=== PATIENT | female | born 1990 | race Caucasian/White ===

== ENCOUNTER 2016-12-27 23:12 | Emergency (ER) | payer MEDICAID ==
[~2016-12-27] VITALS: Ht 162.6 cm; Wt 72.7 kg
[~2016-12-27 23:12] MED LIST: AMOXICILLIN 8751 TAB PO
[2016-12-27 23:16] VITALS: TEMP 98.2
[2016-12-27 23:58] LABS: PH 6 (5-8); SQUAMOUS EPITHELIAL 0-2 /hpf; URINE APPEARANCE Clear; URINE BACTERIA Rare /hpf; URINE BILIRUBIN Negative (NEGATIVE); URINE BLOOD 2+ (NEGATIVE); URINE COLOR Straw; URINE GLUCOSE Negative (NEGATIVE); URINE KETONE Negative (NEGATIVE); URINE UROBILINOGEN Negative (NEGATIVE)
[2016-12-27 23:58] LABS: BASO % 0.4 % (0.0-2.0); EOS # 0.1 (0.0-0.7); EOS % 1.3 % (0-4.0); GRAN # 6.5 (1.4-6.5); GRAN % 66.3 % (42.2-75.2); LYMPH # 2.4 (1.2-3.4); MEAN CELL VOLUME 86 fl (80.0-100.0); MEAN CORPUSCULAR HGB CONC 34 g/dl (33.0-37.0); MEAN PLATELET VOLUME 9.7 fl (7.4-10.4); MONO # 0.8 (0.1-0.6); MONO % 7.7 % (1.7-9.3); PLATELET COUNT 320 K/mm3 (130-400); RED BLOOD COUNT 4.06 M/mm3 (4.10-5.30); REDCELL DISTRIBUTION WIDTH-CV 11.9 % (11.5-14.5); WHITE BLOOD COUNT 9.8 K/mm3 (4.8-10.8)
[2016-12-27 23:59] LABS: HEMATOCRIT 34.7 % (37.0-47.0); HEMOGLOBIN 11.8 g/dl (12.5-16.0); MEAN CORPUSCULAR HEMOGLOBIN 29 pg (27.0-31.0)
[2016-12-28 01:47] LABS: CHLAMYDIA/TRACH by PCR Female NOT DETECTED; NEISSERIA GON by PCR Female NOT DETECTED
[2016-12-28 03:45] VITALS: BP 118/72; PULSE 86
== END 2016-12-28 03:46 | disposition home or self-care (01) ==
LOC: COL.ER 23:12
PROVIDERS: Physician Assistant
DX: O20.0 Threatened abortion (principal); Z3A.01 Less than 8 weeks gestation of pregnancy

== ENCOUNTER 2017-07-30 14:01 | Outpatient (CLI) | payer MEDICAID ==
[~2017-07-30] VITALS: Ht 162.6 cm; Wt 89.1 kg
[2017-07-30 14:12] VITALS: BP 118/83; PULSE 89; TEMP 98.4
[2017-07-30] MEDS ORDERED: PRENATAL (14:21)
[2017-07-30 14:40] VITALS: BP 118/83; PULSE 89; TEMP 98.4
[2017-07-30 15:20] VITALS: BP 118/68; PULSE 93
[2017-07-30 15:35] VITALS: BP 121/73; PULSE 78
== END 2017-07-30 15:45 | disposition home or self-care (01) ==
LOC: LDRO 14:01
DX: O46.93 Antepartum hemorrhage, unspecified, third trimester (principal); Z3A.37 37 weeks gestation of pregnancy

== ENCOUNTER 2017-08-01 02:04 | Inpatient (IN) | payer MEDICAID ==
[2017-08-01] VITALS (14 sets, daily range): BP systolic 103–140; BP diastolic 61–79; PULSE 65–115; TEMP 97.4–98.1
[~2017-08-01] VITALS: Ht 162.6 cm; Wt 89.1 kg
[~2017-08-01 02:04] MED LIST changes: +PRENATAL
[2017-08-01 03:04] LABS: BASO # 0.1 (0.0-0.2); BASO % 0.3 % (0.0-2.0); EOS % 0.2 % (0-4.0); GRAN # 12.6 (1.4-6.5); GRAN % 77.9 % (42.2-75.2); HEMATOCRIT 38.2 % (37.0-47.0); HEMOGLOBIN 13.2 g/dl (12.5-16.0); LYMPH # 2.3 (1.2-3.4); LYMPH % 14.3 % (20.0-51.0); MEAN CELL VOLUME 86 fl (80.0-100.0); MEAN CORPUSCULAR HEMOGLOBIN 30 pg (27.0-31.0); MEAN CORPUSCULAR HGB CONC 35 g/dl (33.0-37.0); MEAN PLATELET VOLUME 9.6 fl (7.4-10.4); MONO # 1.1 (0.1-0.6); MONO % 6.7 % (1.7-9.3); PLATELET COUNT 250 K/mm3 (130-400); RED BLOOD COUNT 4.46 M/mm3 (4.10-5.30); REDCELL DISTRIBUTION WIDTH-CV 13.1 % (11.5-14.5)
[2017-08-02 03:00] VITALS: BP 118/76; PULSE 82; TEMP 9830
[2017-08-02 07:35] VITALS: BP 123/69; PULSE 85; TEMP 97.7
[2017-08-02] MEDS ORDERED: MOTRIN 800800 MG/TAB PO (15:44)
[2017-08-02] MEDS ORDERED: PERCOCET 325 MG1 TA2 PO (15:45)
[2017-08-02 17:20] VITALS: BP 122/83; PULSE 91; TEMP 98.4
[2017-08-02 20:30] VITALS: BP 128/77; PULSE 94; TEMP 98.1
[2017-08-03 07:00] VITALS: BP 111/79; PULSE 83; TEMP 98
== END 2017-08-03 10:35 | disposition home or self-care (01) | DRG 775 ==
LOC: LDRO 02:04 → OB 02:15 → LDR 02:15 → OB 06:35
PROVIDERS: Obstetrics & Gynecology
PROC: 10E0XZZ Delivery of Products of Conception, External Approach (ICD-10-PCS; principal; 2017-08-01)
DX: O99.824 Streptococcus B carrier state complicating childbirth (principal); Z3A.37 37 weeks gestation of pregnancy; Z37.0 Single live birth
CPT/HCPCS: J2540; J2590; J7120

== ENCOUNTER 2019-09-11 17:52 | Emergency (ER) | payer SELFPAY ==
[~2019-09-11] VITALS: Ht 162.6 cm; Wt 81.8 kg
[~2019-09-11 17:52] MED LIST changes: +MOTRIN 800800 MG/TAB PO; +PERCOCET 325 MG1 TA2 PO
[2019-09-11 19:01] LABS: COLLECTION METHOD CLEAN CATCH
[2019-09-11 19:03] LABS: BASO # 0.1 (0.0-0.2); BASO % 0.4 % (0.0-2.0); EOS # 0.1 (0.0-0.7); EOS % 0.4 % (0-4.0); GRAN # 8.3 (1.4-6.5); HEMOGLOBIN 12.1 g/dl (12.5-16.0); LYMPH # 2.6 (1.2-3.4); LYMPH % 21.7 % (20.0-51.0); MEAN CELL VOLUME 86 fl (80.0-100.0); MEAN CORPUSCULAR HEMOGLOBIN 29 pg (27.0-31.0); MEAN CORPUSCULAR HGB CONC 33 g/dl (33.0-37.0); MEAN PLATELET VOLUME 9.8 fl (7.4-10.4); MONO # 0.7 (0.1-0.6); MONO % 6.2 % (1.7-9.3); PLATELET COUNT 334 K/mm3 (130-400); REDCELL DISTRIBUTION WIDTH-CV 11.9 % (11.5-14.5)
[2019-09-11 19:14] LABS: PH 7 (5-8); SQUAMOUS EPITHELIAL 0-2 /hpf; URINE APPEARANCE Clear; URINE BACTERIA None Seen /hpf; URINE BILIRUBIN Negative (NEGATIVE); URINE BLOOD Negative (NEGATIVE); URINE COLOR Straw; URINE GLUCOSE Negative (NEGATIVE); URINE KETONE Negative (NEGATIVE); URINE LEUKOCYTE ESTERASE Trace (NEGATIVE); URINE NITRATE Negative (NEGATIVE); URINE PROTEIN(semi-quant) Negative (NEGATIVE); URINE RBC 0-2 /hpf; URINE UROBILINOGEN Negative (NEGATIVE)
[2019-09-11 19:15] LABS: ALBUMIN 4.7 gm/dL (3.5-5.0); BILIRUBIN,TOTAL 0.4 mg/dL (0.0-1.0); CALCIUM 9.7 mg/dL (8.4-10.2); CREATININE, serum 0.42 (0.52-1.25); POTASSIUM 3.5 mmol/L (3.4-5.0); TOTAL PROTEIN 8.3 gm/dL (6.4-8.2)
[2019-09-11 19:20] LABS: HEMATOCRIT 36.3 % (37.0-47.0)
[2019-09-11 19:34] LABS: HIV 1/2 Antibodies Non-Reactive; HIV-1p24 Antigen Non-Reactive
[2019-09-11 19:42] VITALS: BP 113/72; PULSE 72; TEMP 98
[2019-09-12 16:40] LABS: HEPATITIS B SURFACE ANTIGEN Negative (Negative); HEPATITIS C VIRUS ANTIBODY Negative (Negative)
== END 2019-09-11 19:43 | disposition home or self-care (01) ==
LOC: COL.ER 17:52
PROVIDERS: Nurse Practitioner
DX: S61.439A Puncture wound without foreign body of unspecified hand, initial encounter (principal); W46.0XXA Contact with hypodermic needle, initial encounter; Y99.0 Civilian activity done for income or pay

== ENCOUNTER 2019-11-05 10:45 | Outpatient (RCR) | payer OTHER | END 2020-02-03 | disposition home or self-care (01) | LOC: WSOH | DX: Z77.21 Contact with and (suspected) exposure to potentially hazardous body fluids (principal); Y99.0 Civilian activity done for income or pay ==

== ENCOUNTER 2019-12-05 09:51 | Outpatient (RCR) | payer OTHER | END 2020-03-04 | disposition home or self-care (01) | LOC: WSOH → EDSTATUS 14:23 | DX: Z77.21 Contact with and (suspected) exposure to potentially hazardous body fluids (principal); Y99.0 Civilian activity done for income or pay; W46.0XXA Contact with hypodermic needle, initial encounter ==

== ENCOUNTER 2020-08-26 09:49 | Outpatient (RCR) | payer OTHER | END 2020-11-24 | disposition home or self-care (01) | LOC: WSOH | DX: Z11.59 Encounter for screening for other viral diseases (principal) ==

== ENCOUNTER → 2021-10-13 | Outpatient (CLI) | payer SELFPAY | LOC: COL.RAD 12:22 | DX: N83.9 Noninflammatory disorder of ovary, fallopian tube and broad ligament, unspecified (principal) ==